=== PATIENT | female | born 1995 | race Caucasian/White ===

== ENCOUNTER 2022-07-11 17:17 | Emergency (ER) | payer OTHER ==
[~2022-07-11] VITALS: Ht 162.6 cm; Wt 77.1 kg
[~2022-07-11 17:17] MED LIST: SULTRIDS PO
[2022-07-11 17:46] LABS: Source, Urine Clean Catch
[2022-07-11 17:58] LABS: Appearance, Urine Clear (Clear); Bilirubin, Urine Neg (Neg); Blood, Urine Neg (Neg); Color, Urine Yellow (P-Yellow); Glucose Qualitative, Urine Neg (Neg); Ketones, Urine Neg (Neg); Leukocyte Esterase, Urine Neg (Neg); Nitrite, Urine Neg (Neg); Protein, Urine Neg (Neg); Specific Gravity, Urine 1.025 (1.003-1.022); Urobilinogen, Urine NORM (Normal)
== END 2022-07-11 19:07 | disposition home or self-care (01) ==
LOC: ER 17:17
PROVIDERS: Student in an Organized Health Care Education/Training Program
DX: O26.891 Other specified pregnancy related conditions, first trimester (principal); R10.31 Right lower quadrant pain; Z3A.01 Less than 8 weeks gestation of pregnancy; F17.290 Nicotine dependence, other tobacco product, uncomplicated
CPT/HCPCS: 36415; 76801; 76817; 81003; 84702

== ENCOUNTER → 2023-02-19 | Outpatient (CLI) | payer OTHER | END | disposition home or self-care (01) | LOC: LAB SHORT 10:38 → LAB 10:38 | DX: O09.893 Supervision of other high risk pregnancies, third trimester (principal) | CPT/HCPCS: 87081; 87150 ==